=== PATIENT | female | born 1980 | race Caucasian/White ===

== ENCOUNTER 2019-01-13 12:34 | Day surgery (SDC) | payer OTHER ==
[~2019-01-13 12:34] MED LIST: Lactated Ringers 1,000 ML IV SCH
--- NOTE | 2019-01-13 13:47 | PCM.PREANE ---
Preanesthetic Assessment - Anesthesia/Transfusion/Family Hx Anesthesia History: Prior Anesthesia Without Reaction Family History of Anesthesia Reaction: No Transfusion History: No Prior Transfusion(s) - Review of Systems General: No Symptoms Pulmonary: No Symptoms Cardiovascular: No Symptoms Neurological: No Symptoms Other: Reports: None - Physical Assessment NPO Status Date: 01/12/19 Height: 5 ft 2 in Weight: 119.295 kg ASA Class: 3 Lungs: Clear to Auscultation, Normal Respiratory Effort Cardiovascular: Regular Rate, Regular Rhythm - Lab Values: Laboratory Last Values Urine HCG, Qual NEGATIVE (NEGATIVE) 01/13/19 13:06 - Allergies Allergies/Adverse Reactions: Allergies Allergy/AdvReac Type Severity Reaction Status Date / Time levomilnacipran Allergy mental Verified 01/08/19 09:18 [From Fetzima] issues Sulfa (Sulfonamide Allergy kidney's Verified 01/08/19 09:18 Antibiotics) hurt venlafaxine Allergy back pain Verified 01/08/19 09:18 - Blood Blood Available: No - Anesthesia Plan Pre-Op Medication Ordered: None - Acknowledgements Anesthesia Type Planned: General Anesthesia Pt an Appropriate Candidate for the Planned Anesthesia: Yes Alternatives and Risks of Anesthesia Discussed w Pt/Guardian: Yes Pt/Guardian Understands and Agrees with Anesthesia Plan: Yes Additional Comments: anes prob list: morbid obesity, admits snoring denies apnic episodes, no forml testing, RAD-inactive, GERD. HTN. 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: Reports: Polycystic Ovaries, Musculoskeletal History: Reports: Back Pain, Chronic, Fracture Other Musculoskeletal History: hx fx forearm, cracked elbow, fx toe and finger Neurological History: Reports: Migraines Psychiatric History: Reports: Anxiety, Depression, Panic Attack Endocrine/Metabolic History: Reports: Obesity/BMI 30+ Hematologic History: Reports: None Immunologic History: Reports: None Oncologic (Cancer) History: Reports: None Dermatologic History: Reports: Eczema - Past Surgical History Head Surgeries/Procedures: Reports: None HEENT Surgical History: Reports: None Cardiovascular Surgical History: Reports: None Respiratory Surgical History: Reports: None GI Surgical History: Reports: Cholecystectomy, Colonoscopy Female Surgical History: Reports: None Endocrine Surgical History: Reports: None Neurological Surgical History: Reports: None Musculoskeletal Surgical History: Reports: None Oncologic Surgical History: Reports: None Dermatological Surgical History: Reports: None - SUBSTANCE USE Smoking Status *Q: Former Smoker Recreational Drug Type: Reports: Marijuana/Hashish Recreational Drug Last Use: 4 to 5 days ago - HOME MEDS Home Medications: Home Meds Acyclovir 400 mg PO DAILY 01/08/19 [History] Albuterol Sulfate [Albuterol Sulfate Hfa] 1 - 2 puff INH ASDIRECTED PRN [History] Azelastine/Fluticasone [Dymista Nasal [place]] 1 spray NASBOTH BID 01/08/19 [ History] Clotrimazole/Betamethasone Dip [Lotrisone Cream] 1 applic TOP TID PRN 01/08/19 [ History] Escitalopram Oxalate 10 mg PO BEDTIME 01/08/19 [History] Fluticasone Propionate [Flovent HFA] 1 spray NASBOTH BID 01/08/19 [History] Gabapentin [Neurontin] 600 mg PO TID PRN 01/08/19 [History] Lisinopril 40 mg PO BEDTIME 01/08/19 [History] Omeprazole 40 mg PO BEDTIME 01/08/19 [History] QUEtiapine Fumarate [Seroquel] 25 mg PO BEDTIME PRN 01/08/19 [History] Suvorexant [Belsomra] 20 mg PO BEDTIME PRN 01/08/19 [History] Triamcinolone Acetonide [Triamcinolone Acetonide 0.5%] 1 applic TOP ASDIRECTED PRN 01/08/19 [History] - CURRENT (IN HOUSE) MEDS Current Meds: Current Medications Lactated Ringer's (Ringers, Lactated) 1,000 mls @ 125 mls/hr IV ASDIRECTED YONNY
[2019-01-13] MEDS ORDERED: Lidocaine 2% 5 ML SDV ONE (14:33)
[2019-01-13] MEDS ORDERED: Propofol 200 MG/20 ML SDV ONE ×2 (14:34→14:48)
--- NOTE | 2019-01-13 14:58 | PCM.OPNOTE ---
- General Post-Op/Procedure Note Date of Surgery/Procedure: 01/13/19 Operative Procedure(s): EGD w/ biopsy Pre Op Diagnosis: Progressive heartburn Post-Op Diagnosis: Chronic gastritis. Hiatal hernia Anesthesia Technique: MAC (ASA III) Primary Surgeon: Josef Jenkins Condition: Good Free Text/Narrative:: DICTATION 000271 CPT CODE 64710
[2019-01-13] MEDS ORDERED: Lactated Ringers 1,000 ML IV SCH (15:00)
--- NOTE | 2019-01-13 15:10 | OR ---
SURGEON: Josef Jenkins M.D. DATE OF PROCEDURE: 01/13/2019 OPERATION PERFORMED: Esophagogastroduodenoscopy with biopsy. PRIMARY SURGEON: Josef Jenkins M.D. ANESTHESIA: MAC. ASA CLASSIFICATION: III. PREOPERATIVE DIAGNOSIS: Progressive heartburn. POSTOPERATIVE DIAGNOSES: 1. Mild gastritis number. 2. Hiatal hernia with no significant esophagitis. DESCRIPTION OF PROCEDURE: The patient was taken to the endoscopy room and positioned on the endoscopy table in the supine position. Time-out was called for appropriate identification of the patient and procedure. Monitored anesthesia care was provided. A bite block was placed between the patient's teeth. The gastroscope was inserted through the bite block and advanced without difficulty through the oropharynx into the esophagus and subsequently through the stomach into the duodenum where examination could now be carried out in a retrograde fashion. The duodenum shows no acute inflammatory changes or ulcerations. The stomach does show [id number] gastritis. No acute ulcerations were noted. The gastroscope was retroflexed to visualize the proximal stomach. The patient does have some small gastric polyps and separate biopsies of the polyps along the greater curvature were obtained. The GE junction was well defined, although there is a hiatal hernia. No acute esophagitis was noted and there were no esophageal erosions. The esophagus itself demonstrates good contractility. No mid or proximal lesions were identified. The vocal cords were visualized as the scope was withdrawn. There were no acute inflammatory changes. The gastroscope was then removed with the patient having tolerated the procedure well. She was taken to recovery room in stable condition. ROSALBA / LEONELA /[id number]
--- NOTE | 2019-01-13 15:25 | PCM.POSTAN ---
POST ANESTHESIA ASSESSMENT - MENTAL STATUS Mental Status: Alert, Oriented - RESPIRATORY Respiratory Status: Respiratory Rate WNL, Airway Patent, O2 Saturation Stable - CARDIOVASCULAR CV Status: Pulse Rate WNL, Blood Pressure Stable - GASTROINTESTINAL GI Status: No Symptoms - POST OP HYDRATION Hydration Status: Adequate & Stable - OBSERVATIONS Free Text/Narrative:: propofol only, no fent or midaz. No desats in phase 1, alet
--- NOTE | 2019-01-13 15:46 | PCM48HPAN ---
Post Anesthesia Note - EVALUATION WITHIN 48HRS OF ANESTHETIC Vital Signs in Normal Range: Yes Patient Participated in Evaluation: Yes Respiratory Function Stable: Yes Airway Patent: Yes Cardiovascular Function Stable: Yes Hydration Status Stable: Yes Pain Control Satisfactory: Yes Nausea and Vomiting Control Satisfactory: Yes Mental Status Recovered: Yes Pulse Rate: 71 SaO2: 98 Resp Rate: 16 Blood Pressure: 107/60
== END 2019-01-13 16:15 | disposition home or self-care (01) ==
LOC: MW.SDS 12:34
PROVIDERS: ATTEND Surgery
DX: K21.9 Gastro-esophageal reflux disease without esophagitis (principal); K29.50 Unspecified chronic gastritis without bleeding; K31.7 Polyp of stomach and duodenum; K44.9 Diaphragmatic hernia without obstruction or gangrene; K58.0 Irritable bowel syndrome with diarrhea; I10 Essential (primary) hypertension; E28.2 Polycystic ovarian syndrome; J45.909 Unspecified asthma, uncomplicated; F32.9 Major depressive disorder, single episode, unspecified; F41.9 Anxiety disorder, unspecified; E66.01 Morbid (severe) obesity due to excess calories; Z68.42 Body mass index [BMI] 45.0-49.9, adult; Z88.2 Allergy status to sulfonamides; Z88.8 Allergy status to other drugs, medicaments and biological substances; Z87.891 Personal history of nicotine dependence; Z79.51 Long term (current) use of inhaled steroids; Z79.899 Other long term (current) drug therapy
CPT/HCPCS: 43239; 81025; J2001; J2704; J7120; 88305; 88312

== ENCOUNTER 2023-03-15 07:08 | Day surgery (SDC) | payer BC ==
[~2023-03-15 07:08] MED LIST changes: +Sodium Chloride 0.9% 10 ML Syringe FLUSH PRN; +Sodium Chloride 0.9% 2.5 ML Syringe FLUSH PRN; +Sodium Chloride 0.9% 20 ML SDV IV PRN; +ceFAZolin 2 GM in Sodium Chloride 0.9% 50 ML IV ONE
[2023-03-15] MEDS ORDERED: Scopolamine 1.5 MG Transdermal Patch TOP ONE (07:46)
[2023-03-15] MEDS ORDERED: HYDROmorphone 1 MG/ML Syringe IVPUSH PRN (07:46)
[2023-03-15] MEDS ORDERED: Metoclopramide 10 MG/2 ML SDV IVPUSH PRN (07:46)
[2023-03-15] MEDS ORDERED: Morphine 2 MG/ML SYRINGE IVPUSH PRN (07:46)
[2023-03-15] MEDS ORDERED: droPERidol 5 MG/2 ML SDV IVPUSH PRN (07:46)
[2023-03-15] MEDS ORDERED: Naloxone 0.4 MG/ML SDV IVPUSH PRN (07:46)
[2023-03-15] MEDS ORDERED: Ondansetron 4 MG/2 ML SDV IVPUSH PRN (07:46)
[2023-03-15] MEDS ORDERED: Albuterol 0.083% 2.5 MG/3 ML Neb Soln NEB PRN (07:46)
[2023-03-15] MEDS ORDERED: fentaNYL 50 MCG/ML SDV IVPUSH PRN (07:46)
[2023-03-15] MEDS ORDERED: Lidocaine 1% 20 ML MDV ONE (08:00)
[2023-03-15] MEDS ORDERED: Bupivacaine 0.5% 30 ML SDV ONE (08:00)
[2023-03-15] MEDS ORDERED: propofoL 50 ML ONE (09:11)
[2023-03-15] MEDS ORDERED: fentaNYL 100 MCG/2 ML SDV ONE (09:13)
[2023-03-15] MEDS ORDERED: ceFAZolin 2 GM Vial ONE (09:31)
[2023-03-15] MEDS ORDERED: Dexmedetomidine 200 MCG/2 ML SDV ONE (09:33)
[2023-03-15] MEDS ORDERED: Water For Injection, Sterile 20 ML ONE (09:33)
[2023-03-15] MEDS ORDERED: ePHEDrine 50 MG/ML SDV ONE (09:46)
[2023-03-15] MEDS ORDERED: Propofol 200 MG/20 ML SDV ONE (09:56)
[2023-03-15] MEDS ORDERED: Phenylephrine HCl 0.5 MG/5 ML AMP ONE (10:03)
== END 2023-03-15 11:23 | disposition home or self-care (01) ==
LOC: MW.SDS 07:08
PROVIDERS: ATTEND Surgery
DX: D17.1 Benign lipomatous neoplasm of skin and subcutaneous tissue of trunk (principal); D17.24 Benign lipomatous neoplasm of skin and subcutaneous tissue of left leg; M54.16 Radiculopathy, lumbar region; J45.909 Unspecified asthma, uncomplicated; R32 Unspecified urinary incontinence; D3A.00 Benign carcinoid tumor of unspecified site; K29.50 Unspecified chronic gastritis without bleeding; G89.29 Other chronic pain; F32.A Depression, unspecified; K21.9 Gastro-esophageal reflux disease without esophagitis; I10 Essential (primary) hypertension; D64.9 Anemia, unspecified; G43.909 Migraine, unspecified, not intractable, without status migrainosus; F41.0 Panic disorder [episodic paroxysmal anxiety]; E87.6 Hypokalemia; G47.00 Insomnia, unspecified; K58.9 Irritable bowel syndrome, unspecified; E55.9 Vitamin D deficiency, unspecified; E66.01 Morbid (severe) obesity due to excess calories; Z88.2 Allergy status to sulfonamides; Z88.8 Allergy status to other drugs, medicaments and biological substances; Z88.1 Allergy status to other antibiotic agents; F17.290 Nicotine dependence, other tobacco product, uncomplicated; Z86.010 Personal history of colon polyps; Z79.899 Other long term (current) drug therapy
CPT/HCPCS: 11406; J0690; J2370; J2704; J3010; J3490; J7120; 00300

== ENCOUNTER 2023-03-21 11:47 | Emergency (ER) | payer BC ==
[2023-03-21] MEDS ORDERED: Sodium Chloride 0.9% 10 ML Syringe FLUSH PRN (12:25)
[2023-03-21] MEDS ORDERED: fentaNYL 100 MCG/2 ML SDV IVPUSH ONE (12:25)
[2023-03-21] MEDS ORDERED: droPERidol 5 MG/2 ML SDV IVPUSH ONE (12:25)
[2023-03-21] MEDS ORDERED: Sodium Chloride 0.9% 2.5 ML Syringe FLUSH PRN (12:25)
[2023-03-21] MEDS ORDERED: Naloxone 0.4 MG/ML SDV IVPUSH PRN (12:25)
[2023-03-21] MEDS ORDERED: Ketamine 500 mg/10 ML MDV IV ONE (12:37)
[2023-03-21] MEDS ORDERED: Propofol 200 MG/20 ML SDV IVPUSH ONE (12:37)
== END 2023-03-21 15:45 | disposition home or self-care (01) ==
LOC: MW.ED 11:47
DX: S52.502A Unspecified fracture of the lower end of left radius, initial encounter for closed fracture (principal); I10 Essential (primary) hypertension; J45.909 Unspecified asthma, uncomplicated; K21.9 Gastro-esophageal reflux disease without esophagitis; E66.9 Obesity, unspecified; Z88.1 Allergy status to other antibiotic agents; Z88.8 Allergy status to other drugs, medicaments and biological substances; Z79.51 Long term (current) use of inhaled steroids; Z68.41 Body mass index [BMI] 40.0-44.9, adult; Z79.899 Other long term (current) drug therapy; W19.XXXA Unspecified fall, initial encounter
CPT/HCPCS: 24600; 73080; 73100; 73110; 73630; 96374; 96375; 99152; 99153; 99283; J1790; J2704; J3010; J3490; 25605; 99284

== ENCOUNTER 2023-04-14 08:13 | Emergency (ER) | payer BC ==
[2023-04-14] MEDS ORDERED: Sodium Chloride 0.9% 1,000 ML IV ONE ×3 (08:28→11:19)
[2023-04-14] MEDS ORDERED: droPERidol 5 MG/2 ML SDV IVPUSH ONE (08:36)
[2023-04-14 08:42] LABS: BASOPHILS PERCENT AUTO 0.3 % (0.0-1.5); EOSINOPHILS PERCENT AUTO 0.2 % (0.0-7.0); HEMATOCRIT 41.1 % (36.0-46.0); HEMOGLOBIN 14.6 g/dL (12.0-16.0); LYMPHOCYTES ABSOLUTE AUTO 2.8 K/uL (0.6-2.4); LYMPHOCYTES PERCENT AUTO 21.2 % (16.0-40.0); MEAN CORPUSCULAR HEMOGLOBIN 28.5 pg (27.0-32.0); MEAN CORPUSCULAR HGB CONC 35.5 g/dL (31.0-37.0); MEAN CORPUSCULAR VOLUME 80.1 fL (80.0-98.0); MONOCYTES ABSOLUTE AUTO 0.8 K/uL (0.0-0.8); MONOCYTES PERCENT AUTO 6.2 % (0.0-15.0); NEUTROPHILS ABSOLUTE AUTO 9.4 K/uL (1.4-5.7); NEUTROPHILS PERCENT AUTO 72.1 % (48.0-80.0); NRBC ABSOLUTE 0 K/uL; PLATELET COUNT,PLT 421 K/uL (150-400); RED BLOOD CELL COUNT 5.13 M/uL (4.30-5.90); WHITE BLOOD CELL COUNT,WBC 13.06 K/uL (4.0-11.0)
[2023-04-14 09:05] LABS: A/G RATIO 1.1 (0.9-1.6); ALANINE AMINOTRANSFERASE,ALT 30 IU/L (14-63); ALBUMIN 4.5 g/dL (3.4-5.0); ALKALINE PHOSPHATASE 70 U/L (46-116); ASPARTATE AMNIOTRANSFERASE,AST 22 IU/L (15-37); BILIRUBIN TOTAL 1.4 mg/dL (0.2-1.0); BLOOD UREA NITROGEN,BUN 17 mg/dL (7.0-18.0); CALCIUM 10.1 mg/dL (8.5-10.1); CARBON DIOXIDE,CO2 18.9 mmol/L (21.0-32.0); CHLORIDE,CL 98 mmol/L (98-107); CREATININE 1.3 mg/dL (0.6-1.0); EST CRCL DRUG DOSING (CG) 45.04 mL/min; ESTIMATED GFR 53 mL/min (>60); ETHANOL BLOOD MEDICAL < 3.0 mg/dL; GLUCOSE RANDOM 106 mg/dL (74-106); LIPASE 56 U/L (16-77); MAGNESIUM 1.8 mg/dL (1.8-2.4); POTASSIUM,K 3.4 mmol/L (3.5-5.1); PROTEIN TOTAL,TP 8.5 g/dL (6.4-8.2); SODIUM,NA 135 mmol/L (136-145)
[2023-04-14 09:18] LABS: LACTIC ACID 2.4 mmol/L (0.4-2.0)
[2023-04-14 10:48] LABS: COLOR,URINE YELLOW; GLUCOSE,URINE NEGATIVE (NEGATIVE); KETONES,URINE >=80 mg/dL (NEGATIVE); LEUKOCYTE ESTERASE,URINE NEGATIVE (NEGATIVE); NITRITE,URINE NEGATIVE (NEGATIVE); OCCULT BLOOD,URINE LARGE (NEGATIVE); PH,URINE 6.5 (5.0-8.0); PROTEIN,URINE NEGATIVE (NEGATIVE); UROBILINOGEN,URINE 0.2 EU/dL (<2.0)
[2023-04-14 10:55] LABS: APPEARANCE,URINE HAZY; BILIRUBIN,URINE SMALL (NEGATIVE)
[2023-04-14 10:56] LABS: BACTERIA,URINE RARE (NEGATIVE); EPITHELIAL CELLS,URINE RARE (NONE-FEW); WBC,URINE 0-2 (0-5/HPF)
[2023-04-14 10:57] LABS: AMPHETAMINES SCREEN, URINE NEGATIVE (CUTOFF=500); BARBITURATE SCREEN,URINE NEGATIVE (CUTOFF=200); BENZODIAZEPINES SCREEN,URINE NEGATIVE (CUTOFF=150); BUPRENORPHINE SCREEN,URINE NEGATIVE (CUTOFF=10); METHADONE SCREEN, URINE NEGATIVE (CUTOFF=200); METHAMPHETAMINES SCREEN, URINE NEGATIVE (CUTOFF=500); OXYCODONE SCREEN,URINE NEGATIVE (CUT0FF=100); PCP SCREEN,URINE NEGATIVE (CUTOFF=25); PROPOXYPHENE SCREEN,URINE NEGATIVE (CUTOFF=300); THC SCREEN,URINE 20 NG/ML PRESUMPTIVE POSITIVE (CUTOFF=50)
[2023-04-14] MEDS ORDERED: Promethazine 25 MG/ML SDV IM ONE (11:18)
[2023-04-14] MEDS ORDERED: Ondansetron 4 MG/2 ML SDV IVPUSH ONE (11:18)
[2023-04-14] MEDS ORDERED: Iopamidol 755 Mg/ML 100 ML Bottle IVPUSH ONE (17:43)
== END 2023-04-14 12:11 | disposition home or self-care (01) ==
LOC: MW.ED 08:13
DX: R11.2 Nausea with vomiting, unspecified (principal); K21.9 Gastro-esophageal reflux disease without esophagitis; I10 Essential (primary) hypertension; E66.9 Obesity, unspecified; Z68.38 Body mass index [BMI] 38.0-38.9, adult; Z88.2 Allergy status to sulfonamides; Z88.8 Allergy status to other drugs, medicaments and biological substances; Z79.899 Other long term (current) drug therapy; Z90.49 Acquired absence of other specified parts of digestive tract; Z20.822 Contact with and (suspected) exposure to COVID-19
CPT/HCPCS: 36415; 74177; 80053; 80305; 80307; 81001; 83605; 83690; 83735; 84703; 85025; 87635; 96361; 96372; 96374; 96375; 99284; J1790; J2405; J2550; J7030; Q9967; U0002